=== PATIENT | male | born 1970 | race African-American/Black ===

== ENCOUNTER 2016-09-20 20:34 | Emergency (ER) | payer MEDICAID ==
[~2016-09-20] VITALS: Ht 185.4 cm; Wt 88.1 kg
[2016-09-20 20:36] VITALS: BP 132/85
== END 2016-09-20 22:46 | disposition left against medical advice (07) ==
LOC: ED 22:40
DX: M25.561 Pain in right knee (principal); R10.31 Right lower quadrant pain; G89.29 Other chronic pain
CPT/HCPCS: 99281